=== PATIENT | female | born 1955 | race Caucasian/White ===

== ENCOUNTER 2016-09-23 07:41 | Emergency (ER) | payer OTHER ==
[~2016-09-23] VITALS: Ht 170.2 cm; Wt 85.0 kg
[~2016-09-23 07:41] MED LIST: FOLI1 PO; SERT50 PO; THIA100T PO
[2016-09-23 07:54] VITALS: BP 160/72; PULSE 85; RESP 16; O2SAT 94
--- NOTE | 2016-09-23 08:22 | PD ---
HPI Chief Complaint: Psychiatric Symptoms Time Seen by Provider: 08:01 Travel History International Travel<30 days: No Contact w/Intl Traveler<30days: No Traveled to known affect area: No History of Present Illness HPI This is a 61-year-old female with no significant past medical history, who presents here under [place]. The patient states that she's been depressed for a year. She states that she is now having suicidal thoughts. When asked what her suicidal thoughts were, she would not elaborate states that she's not related to talk about it yet. The patient does have a history of daily alcohol use. She reports she had 2 whiskeys this morning. She denies any history of withdrawal. She denies any history of previous [place]. The patient denies any drugs of abuse. The patient does use tobacco products. PFSH Past Medical History Medical History: Denies Significant Hx Arthritis: Yes Cancer: No Cardiovascular Problems: No Diabetes: No Diminished Hearing: No Psychiatric: Yes (deoression) Immunizations Current: No Seizures: No Tetanus Vaccination: Unknown Influenza Vaccination: No ?: Not Menopausal: Yes : 1 Past Surgical History Surgical History: No Previous Surgery Other Surgery: Yes (BILAT BREAST REDUCTION) Social History Alcohol Use: Yes Tobacco Use: Yes Substance Use: No Allergies-Medications (Allergen,Severity, Reaction): Coded Allergies: No Known Allergies (Unverified , 09/23/16) Reported Meds & Prescriptions Reported Meds & Active Scripts Active No Active Prescriptions or Reported Medications Review of Systems Except as stated in HPI: all other systems reviewed are Neg General / Constitutional: No: Fever HENT: No: Headaches, Lightheadedness Cardiovascular: No: Chest Pain or Discomfort Respiratory: No: Cough, Shortness of Breath Gastrointestinal: No: Nausea, Vomiting, Abdominal Pain Musculoskeletal: No: Weakness, Pain Neurologic: No: Weakness, Headache Psychiatric: Positive: Anxiety (patient reports drinking alcohol to calm her anxiety.), Depression, Suicidal Ideations (times one year), Substance Abuse ( alcohol), No: Disorder of Thought, Homicidal Ideation Physical Exam Narrative GENERAL: Well-nourished, well-developed patient, in no acute respiratory distress. SKIN: Focused skin assessment warm/dry. HEAD: Normocephalic/atraumatic. EYES: No scleral icterus. No injection or drainage. NECK: No JVD or lymphadenopathy. CARDIOVASCULAR: Regular rate and rhythm without murmurs, gallops, or rubs. RESPIRATORY: Breath sounds equal bilaterally. No accessory muscle use. GASTROINTESTINAL: Abdomen soft, non-tender, nondistended. MUSCULOSKELETAL: No cyanosis, or edema. NEUROLOGICAL: Awake and alert. Cranial nerves II through XII intact. Motor grossly within normal limits. Five out of 5 muscle strength in all muscle groups. Normal speech. PSYCHIATRIC: Tearful and emotional. No disordered thoughts. Data Data Last Documented VS Vital Signs Date Time Temp Pulse Resp B/P Pulse Ox O2 Delivery O2 Flow Rate FiO2 09/23/16 07:54 85 16 160/72 94 Orders Complete Blood Count With Diff (09/23/16 08:01) Comprehensive Metabolic Panel (09/23/16 08:01) Psych Screen (09/23/16 08:01) Drug Screen, Random Urine (09/23/16 08:01) Alcohol (Ethanol) (09/23/16 08:01) Alcohol Withdrawal Asmt-Ciwa ONCE (09/23/16 09:35) Flumazenil Inj (Romazicon Inj) (09/23/16 09:45) Lorazepam (Ativan) (09/23/16 09:45) Lorazepam Inj (Ativan Inj) (09/23/16 09:45) Lorazepam (Ativan) (09/23/16 09:45) Lorazepam Inj (Ativan Inj) (09/23/16 09:45) Lorazepam Inj (Ativan Inj) (09/23/16 09:45) Lorazepam Inj (Ativan Inj) (09/23/16 09:45) Labs Laboratory Tests Test 09/23/16 09/23/16 08:10 08:45 White Blood Count 5.2 TH/MM3 Red Blood Count 4.34 MIL/MM3 Hemoglobin 13.1 GM/DL Hematocrit 38.9 % Mean Corpuscular Volume 89.7 FL Mean Corpuscular Hemoglobin 30.2 PG Mean Corpuscular Hemoglobin 33.7 % Concent Red Cell Distribution Width 15.2 % Platelet Count 144 TH/MM3 Mean Platelet Volume 7.7 FL Neutrophils (%) (Auto) 41.0 % Lymphocytes (%) (Auto) 40.7 % Monocytes (%) (Auto) 9.3 % Eosinophils (%) (Auto) 8.2 % Basophils (%) (Auto) 0.8 % Neutrophils # (Auto) 2.1 TH/MM3 Lymphocytes # (Auto) 2.1 TH/MM3 Monocytes # (Auto) 0.5 TH/MM3 Eosinophils # (Auto) 0.4 TH/MM3 Basophils # (Auto) 0.0 TH/MM3 CBC Comment DIFF FINAL Differential Comment Sodium Level 140 MEQ/L Potassium Level 3.6 MEQ/L Chloride Level 105 MEQ/L Carbon Dioxide Level 21.7 MEQ/L Anion Gap 13 MEQ/L Blood Urea Nitrogen 12 MG/DL Creatinine 0.66 MG/DL Estimat Glomerular Filtration 91 ML/MIN Rate Random Glucose 97 MG/DL Calcium Level 8.7 MG/DL Total Bilirubin 0.4 MG/DL Aspartate Amino Transf 84 U/L (AST/SGOT) Alanine Aminotransferase 64 U/L (ALT/SGPT) Alkaline Phosphatase 112 U/L Total Protein 8.3 GM/DL Albumin 3.9 GM/DL Ethyl Alcohol Level 325 MG/DL Urine Opiates Screen NEG Urine Barbiturates Screen NEG Urine Amphetamines Screen NEG Urine Benzodiazepines Screen NEG Urine Cocaine Screen NEG Urine Cannabinoids Screen NEG MDM Medical Decision Making Medical Screen Exam Complete: Yes Emergency Medical Condition: Yes Differential Diagnosis Depression versus suicidal ideation versus substance induced mood disorder versus anxiety Narrative Course [id number] female who presents with suicidal ideation. The patient has been depressed for one year according to her. She states she has a plan but will not elaborate to me. The patient was noted initially to be walking her throughout her room looking for "things to hurt myself". The patient then had a sitter placed. Her alcohol level 325. She is awake and appropriate. She'll be medically cleared. I have ordered to [facility] protocol for her. Diagnosis Primary Impression: Suicidal ideation Additional Impressions: ETOH abuse medically cleared. Scripts No Active Prescriptions or Reported Meds Toni Her MD Sep 23, 2016 08:22
[2016-09-23 08:43] LABS: AUTOMATED NEUTROPHIL # 2.1 TH/MM3 (1.8-7.7); BASOPHIL % 0.8 % (0.0-2.0); EOSINOPHIL # 0.4 TH/MM3 (0-0.4); EOSINOPHIL % 8.2 % (0.0-4.0); HEMATOCRIT 38.9 % (35.0-46.0); HEMO FLAGS DIFF FINAL; LYMPH % 40.7 % (9.0-44.0); LYMPHOCYTE # 2.1 TH/MM3 (1.0-4.8); MEAN CELL VOLUME 89.7 FL (80.0-100.0); MEAN CORPUSCULAR HEMOGLOBIN 30.2 PG (27.0-34.0); MEAN CORPUSCULAR HGB CONC 33.7 % (32.0-36.0); MONO % 9.3 % (0.0-8.0); PLATELET COUNT 144 TH/MM3 (150-450); RED BLOOD COUNT 4.34 MIL/MM3 (4.00-5.30); RED CELL DISTRIBUTION WIDTH 15.2 % (11.6-17.2); WHITE BLOOD COUNT 5.2 TH/MM3 (4.0-11.0)
[2016-09-23 09:02] LABS: ALT (GPT) 64 U/L (10-53); ANION GAP 13 MEQ/L (5-15); AST (GOT) 84 U/L (15-37); BICARBONATE 21.7 MEQ/L (21.0-32.0); BLOOD UREA NITROGEN 12 MG/DL (7-18); CHLORIDE 105 MEQ/L (98-107); GLOMERULAR FILTRATION RATE 91 ML/MIN (>89); POTASSIUM 3.6 MEQ/L (3.5-5.1); SODIUM (NA) 140 MEQ/L (136-145)
[2016-09-23 09:03] LABS: ALKALINE PHOSPHATASE 112 U/L (45-117); TOTAL BILIRUBIN ADULT 0.4 MG/DL (0.2-1.0)
[2016-09-23 09:07] LABS: AMPHETAMINE, URINE NEG (NEG); BARBITURATES, URINE NEG (NEG); COCAINE, URINE NEG (NEG)
[2016-09-23] MEDS ORDERED: LORazepam 2 MG TAB PO PRN (09:45)
[2016-09-23] MEDS ORDERED: LORazepam 2 MG/ML VIAL IV PUSH PRN ×4 (09:45)
[2016-09-23] MEDS ORDERED: LORazepam 1 MG TAB PO PRN (09:45)
[2016-09-23] MEDS ORDERED: FLUMAZENIL 0.5 MG/5 ML VIAL IV PUSH PRN (09:45)
[2016-09-23 14:39] VITALS: BP 159/72; PULSE 93; RESP 18; TEMP 98.5; O2SAT 95
[2016-09-23 19:00] VITALS: BP 175/74; PULSE 81; RESP 18
[2016-09-23 21:56] VITALS: BP 163/72; PULSE 73; RESP 20; O2SAT 98
[2016-09-24 02:10] VITALS: BP 155/70; PULSE 80; RESP 17; TEMP 96.4; O2SAT 99
[2016-09-24 06:17] VITALS: BP 142/65; PULSE 78; RESP 18; O2SAT 97
--- NOTE | 2016-09-24 10:57 | PD ---
History of Present Illness Chief Complaint: Psychiatric Symptoms Time Seen by Provider: 10:30 Travel History International Travel<30 Days: No Contact w/Intl Traveler<30days: No Known affected area: No Legal Status Legal Status: [place] History of Present Illness: This is a 61-year-old female who presented to the emergency department under a [place] act for suicidal ideation. She would not discuss plans as to how she would commit suicide. She would not discuss reasons why she felt suicidal. She did report daily consumption of alcohol, including to whiskey drinks (at least) yesterday morning. This physician spoke with the patient's nurse and interviewed the patient. At this time she denies any suicidal ideation, plan or intent. She denies any homicidal ideation, plan or intent. She has no psychotic symptoms and her cognition is intact. She is no longer intoxicated. When questioned by this physician as to whether she believes she has a problem with alcohol, the patient replied "sometimes". This physician informed her that indeed she is an alcoholic and needs to stop drinking and attend AA meetings. The patient acknowledged this physician's statement but would not agree. She does verbally contract for safety at this time and she is competent to do so. She continues to be unwilling to discuss the nature of her suicidality but does reiterate she is not suicidal, homicidal or psychotic at this time. PFSH Past Medical History Medical History: Denies Significant Hx Arthritis: Yes Cancer: No Cardiovascular Problems: No Diabetes: No Diminished Hearing: No Psychiatric: Yes (deoression) Immunizations Current: No Seizures: No Tetanus Vaccination: Unknown Influenza Vaccination: No ?: Not Menopausal: Yes : 1 Past Surgical History Surgical History: No Previous Surgery Other Surgery: Yes (BILAT BREAST REDUCTION) Psychiatric History Psychiatric History Hx Psychiatric Treatment: HX OF TREATMENT FOR DEPRESSION ABOUT 2 YEARS AGO. NO CURRENT TREATMENT History of Inpatient Treatment: No Guns or firearms in home: No Social History Hx Alcohol Use: Yes Hx Tobacco Use: Yes Hx Substance Use: Yes (BINGE DRINKER) Substance Use Type: Alcohol Hx of Substance Use Treatment: No Allergies-Medications (Allergen,Severity, Reaction): Coded Allergies: No Known Allergies (Unverified , 09/23/16) Reported Meds & Prescriptions Reported Meds & Active Scripts Active No Active Prescriptions or Reported Medications Review of Systems Except as stated in HPI: all other systems reviewed are Neg Exam Alert: Yes [place]: Person, Place, Date, Situation Mood: Calm Affect: Appropriate Speech: Clear, Logical Eye Contact: Normal Memory Intact: Immediate, Recent, Remote Insight/Judgement Adequate MDM Medical Decision Making Medical Record Reviewed: Yes Assessment/Plan 61-year-old female whose primary problem appears to be alcoholism. Apparently she was intoxicated yesterday and made suicidal remarks even though she had not done anything to harm herself. She does admit to stressors in her life that contributed to her suicidality but she will not elaborate as to what these are. This physician believes she has an alcohol problem but the patient is unwilling to concede this fact. This leaves the patient at risk for self-harm in the future. However, this is unavoidable given the patient's denial of alcoholism. At this time, however, she expresses no suicidal or homicidal ideation, plan or intent. Her cognition is intact and she is verbally almita for safety. This physician spoke with the patient's nurse about her recent behavior and the patient is verbally almita for safety. Orders Diet Regular Basic (09/23/16 Dinner) Diet Regular Basic (09/24/16 Breakfast) Diet Regular Basic (09/24/16 Lunch) Results Vital Signs Date Time Temp Pulse Resp B/P Pulse Ox O2 Delivery O2 Flow Rate FiO2 09/24/16 06:17 78 18 142/65 97 Room Air 09/24/16 02:10 96.4 80 17 155/70 99 Room Air 09/23/16 21:56 73 20 163/72 98 Room Air 09/23/16 19:00 81 18 175/74 Room Air 09/23/16 14:39 98.5 93 18 159/72 95 Room Air Diagnosis Primary Impression: Adjustment disorder with mixed disturbance of emotions and conduct Additional Impression: ETOH abuse Prescriptions No Active Prescriptions or Reported Meds Problem Qualifiers Phoenix Rider MD Sep 24, 2016 10:57
== END 2016-09-24 12:37 | disposition home or self-care (01) ==
LOC: NEPC 07:41 → NEPJ 09-24 12:37
DX: F43.25 Adjustment disorder with mixed disturbance of emotions and conduct (principal); M19.90 Unspecified osteoarthritis, unspecified site; R45.851 Suicidal ideations; Z87.891 Personal history of nicotine dependence
CPT/HCPCS: 80053; 80307; 85025; 99285